=== PATIENT | female | born 1970 | race Caucasian/White ===

== ENCOUNTER 2021-05-02 11:39 | Outpatient (CLI) | payer OTHER, SELFPAY ==
[2021-05-02 13:28] LABS: SARS-CoV-2 RNA PCR Negative (Negative)
== END 2021-05-02 11:40 | disposition home or self-care (01) ==
LOC: CHSLAB 11:42
PROVIDERS: PCP Physician Assistant; Visit Provider Physician Assistant
DX: B34.9 Viral infection, unspecified (principal); Z20.822 Contact with and (suspected) exposure to COVID-19
CPT/HCPCS: C9803; U0003; U0005